=== PATIENT | female | born 1985 | race Caucasian/White ===

== ENCOUNTER 2017-04-16 13:24 | Emergency (ER) | payer OTHER ==
[~2017-04-16] VITALS: Ht 157.5 cm; Wt 106.0 kg
[~2017-04-16 13:24] MED LIST: CYCL-319 PO; DENIES; IBUP-1542 PO; TRAM50TA2 PO
[2017-04-16 13:29] VITALS: Ht 157.5 cm; Wt 106.0 kg
[2017-04-16] MEDS ORDERED: IBUP-1542 PO (14:12)
[2017-04-16] MEDS ORDERED: BEN25 PO (14:12)
[2017-04-16] MEDS ORDERED: PRED20TA PO (14:12)
[2017-04-16] MEDS ORDERED: CEPH-443 PO (14:12)
--- NOTE | 2017-04-16 14:15 | ERD ---
ER Documentation Chief Complaint Date/Time DATE: 04/16/17 TIME: 14:14 Chief Complaint RIGHT SIDE OF SWELLING AFTER BEE STING LAST MONDAY HPI 31-year-old female presents emergency department with right-sided facial swelling and itching that occurred after getting stung by a bee 2 days ago. Patient states that there is some mild pain, and itching but the swelling has not gone away and therefore presents emergency room. She has tried applying ice only. She has not had any trouble swallowing, rashes, shortness of breath. She states that she has been stung by bee previously without any reaction to it. ROS All systems reviewed and are negative except as per history of present illness. Medications Home Meds Active Scripts Diphenhydramine Hcl* (Benadryl*) 25 Mg Cap, 25 MG PO Q6, #30 CAP Prov:SOPHIA HERRERA PA-C 04/16/17 Ibuprofen* (Motrin*) 600 Mg Tab, 600 MG PO Q6, #30 TAB Prov:SOPHIA HERRERA PA-C 04/16/17 Cephalexin* (Keflex*) 500 Mg Capsule, 500 MG PO QID for 5 Days, CAP Prov:SOPHIA HERRERA PA-C 04/16/17 Prednisone* (Prednisone*) 20 Mg Tab, 40 MG PO DAILY for 4 Days, TAB Prov:SOPHIA HERRERA PA-C 04/16/17 Cyclobenzaprine Hcl* (Cyclobenzaprine Hcl*) 10 Mg Tablet, 10 MG PO TID, #20 TAB Prov:LOVE DOOLEY MD 06/21/16 Ibuprofen* (Motrin*) 600 Mg Tab, 600 MG PO Q6, #30 TAB Prov:LOVE DOOLEY MD 06/21/16 Tramadol HCl (Tramadol HCl) 50 Mg Tablet, 50 MG PO Q4 Y for PAIN, #20 TAB Prov:LOVE DOOLEY MD 06/21/16 Reported Medications [Denies] No Conflict Check 07/04/10 Allergies Allergies: Coded Allergies: No Known Allergy (Verified , 03/18/14) PMhx/Soc History of Surgery: Yes (APPENDECTOMY) Anesthesia Reaction: No Hx Neurological Disorder: Yes Hx Respiratory Disorders: No Hx Cardiac Disorders: No Hx Psychiatric Problems: No Hx Miscellaneous Medical Probl: Yes (CARPAL TUNNEL SYNDROME) Hx Alcohol Use: Yes (occasionally) Hx Substance Use: No Hx Tobacco Use: No Smoking Status: Never smoker Physical Exam Vitals Vital Signs Date Time Temp Pulse Resp B/P Pulse Ox O2 Delivery O2 Flow Rate FiO2 04/16/17 13:29 98.6 77 18 122/89 99 Physical Exam General: Well-developed, well-nourished. The patient appears in no acute distress. HEENT: Head is normocephalic, atraumatic. No scleral icterus no angioedema. Right-sided cheek and lower aspect is swollen, there is slight pinkish color to it. There is no dental abscess. No cellulitis. No trismus, no submandibular swelling. There is no drooling or voice changes. Neck: Supple. Nontender. Lungs: Clear to auscultation. Normal air movement. Heart: Regular rate and rhythm. S1 and S2 are normal. No murmurs, gallops, or rubs. Abdomen: Soft, nontender, nondistended. Bowel sounds are normoactive. Extremities: No clubbing or cyanosis. Normal pulses. Moving extremities x 4. No weakness. Neurologic: Alert and oriented 3. No focal deficits. Skin: Normal turgor. No rash or lesions. Results 24 hrs Current Medications Medications (Trade) Dose Ordered Sig/Sreedhar Route PRN Reason Start Time Stop Time Status Last Admin Dose Admin Diphenhydramine HCl (Benadryl) 25 mg ONCE ONCE PO 04/16/17 14:30 04/16/17 14:31 Prednisone (Prednisone) 40 mg ONCE ONCE PO 04/16/17 14:30 04/16/17 14:31 Ibuprofen (Motrin) 600 mg ONCE ONCE PO 04/16/17 14:30 04/16/17 14:31 Procedures/MDM 31-year-old female presents with a bee sting to the right side of face, this had happened 2 days ago and the swelling has not decreased. Patient presents with a local reaction, without signs of anaphylaxis or infection. Patient is stable for outpatient management. Departure Diagnosis: Primary Impression: Bee sting Condition: Good Patient Instructions: Insect Bites and Stings SOPHIA HERRERA PA-C Apr 16, 2017 14:15
[2017-04-16] MEDS ORDERED: IBUPROFEN 600 MG TAB PO ONE (14:30)
[2017-04-16] MEDS ORDERED: predniSONE 20 MG TAB PO ONE (14:30)
[2017-04-16] MEDS ORDERED: DIPHENHYDRAMINE 25 MG CAP PO ONE (14:30)
== END 2017-04-16 14:24 | disposition home or self-care (01) ==
LOC: FTE 13:24
DX: T63.441A Toxic effect of venom of bees, accidental (unintentional), initial encounter (principal)
CPT/HCPCS: J7512; Z7502; Z7610; 99284